=== PATIENT | female | born 1950 | race Caucasian/White ===

== ENCOUNTER → 2017-05-07 | Outpatient (CLI) | payer OTHER | LOC: CIMAGING 16:27 | PROVIDERS: ATTEND Internal Medicine | DX: M51.34 Other intervertebral disc degeneration, thoracic region (principal); M54.9 Dorsalgia, unspecified; R07.9 Chest pain, unspecified; Z87.81 Personal history of (healed) traumatic fracture | CPT/HCPCS: 72070-PO; 85378-PO ==

== ENCOUNTER → 2017-05-07 | Outpatient (CLI) | payer OTHER ==
[~2017-05-07] MED LIST: IOPAMIDOL (ISOVUE 370) 100 ML BTL IV ONE
== END ==
LOC: CIMAGING 19:21
PROVIDERS: ATTEND Internal Medicine
DX: R07.9 Chest pain, unspecified (principal); I51.7 Cardiomegaly; E04.1 Nontoxic single thyroid nodule; M51.34 Other intervertebral disc degeneration, thoracic region
CPT/HCPCS: 71275; Q9967; 72070-PO; 82565-PO; 85378-PO

== ENCOUNTER → 2017-05-08 | Outpatient (CLI) | payer OTHER | LOC: CIMAGING 15:04 | PROVIDERS: ATTEND Internal Medicine | DX: M47.812 Spondylosis without myelopathy or radiculopathy, cervical region (principal); M62.830 Muscle spasm of back; M46.92 Unspecified inflammatory spondylopathy, cervical region | CPT/HCPCS: 72040-PO ==

== ENCOUNTER → 2018-10-26 | Outpatient (CLI) | payer OTHER | LOC: CIMAGING 11:04 | PROVIDERS: ATTEND Internal Medicine | DX: R06.00 Dyspnea, unspecified (principal); R09.02 Hypoxemia; R91.8 Other nonspecific abnormal finding of lung field; Z85.3 Personal history of malignant neoplasm of breast | CPT/HCPCS: 71250-PO ==

== ENCOUNTER 2019-01-09 11:18 | Emergency (ER) | payer OTHER | END 2019-01-09 12:33 | disposition home or self-care (01) ==